=== PATIENT | female | born 1965 | race Caucasian/White ===

== ENCOUNTER 2016-07-31 12:59 | Emergency (ER) | payer SELFPAY ==
[2016-07-31 13:13] VITALS: BMI 31.6
[2016-07-31 13:42] LABS: AUTOMATED BASOPHIL 0.5 % (0-2); AUTOMATED LYMPH 10.2 % (17-44); AUTOMATED MONOCYTE 3.7 % (3-10); AUTOMATED NEUTROPHIL 85.6 % (45-76); MPV 7.6 fL (7.4-10.4)
[2016-07-31 13:52] LABS: BLOOD UREA NITROGEN 16 MG/DL (7-17); CALCIUM 9.7 MG/DL (8.4-10.2); CALCULATED OSMOLALITY 274 MOs/Kg (270-290); CHLORIDE 103 mEq/L (98-107); CPK TOTAL WITH POSSIBLE MB 77 IU/L (30-134); GLUCOSE 138 MG/DL (70-99); SODIUM LEVEL 141 mEq/L (137-146); TOTAL PROTEIN 8.3 G/DL (6.3-8.2)
[2016-07-31 13:53] LABS: PARTIAL THROMB. TIME 21.9 SEC (22-35)
[2016-07-31 14:08] LABS: FREE T3 2.99 pg/mL (2.77-5.27); FREE T4 1.23 ng/dL (0.78-2.19)
--- NOTE | 2016-07-31 14:08 | DIRPT ---
CLINICAL DATA: Palpitation EXAM: CHEST 2 VIEW COMPARISON: None. FINDINGS: Borderline cardiomegaly. Clear lungs. Normal vascularity. No pneumothorax. No pleural effusion. IMPRESSION: No active cardiopulmonary disease. Electronically Signed By: Holger Buck M.D. On: 07/31/2016 14:05
--- NOTE | 2016-07-31 14:12 | EDPRACDOC ---
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 RESOLVED ON ARRIVAL TO ER. CURRENTLY BEING TREATED FOR URI WITH LEVAQUIN AND PREDNISONE. ALSO REPORTS ELEVATED BLOOD SUGARS AND IS NOT DIABETIC. Symptoms Started: Reports: Suddenly, With light exertion Relevant History: Reports: None Pulse is: Rapid Worsens with: Reports: Exertion Associated signs & symptoms: Reports: Dyspnea. Denies: Chest pain Chest Pain Location: Reports: No Pain ED Past Medical History - History Reviewed Yes Nurses notes reviewed and agree except as marked - Patient Medical History Psychological History: Reports: Depression, Anxiety, Bipolar Disorder - Social Medical History Smoking Status: Heavy tobacco smoker (5 or more cigarettes/day or daily pipe/ cigar) Lives In: Home EDM Review of Systems - Review of Systems ROS Negative Except as Marked: Yes All systems reviewed and were negative except as marked Constitutional: Fatigue. negative: Fever Respiratory: Shortness of Breath Cardiovascular: Palpitations. negative: Chest Pain Gastrointestinal: negative: Nausea, Pain, Vomiting - Physical Exam Constitutional: Alert Oriented to: Time, Person, Place Last recorded Vital Signs: Last Vital Signs Temp 98.6 F 07/31/16 13:09 Pulse 120 H 07/31/16 13:28 Resp 20 07/31/16 13:28 BP 172/94 07/31/16 13:28 Pulse Ox 99 07/31/16 13:28 Oxygen Pulse Oxygen Saturation 99 O2 Device Room Air Oxygen Flow Rate Fraction of Inspired Oxygen ( FIO2) - HEENT Head: negative: Deformity, Laceration Eye Exam: negative: Conjunctival Injection, Pale Conjunctiva Oropharynx: negative: Membranes Dry Nose: negative: Congestion, Discharge Neck: negative: Limited ROM - Respiratory/Cardiovascular Respiratory: Normal - CTA. negative: Accessory Muscle Use, Diminished, Tachypnea Cardiovascular: Tachycardia. negative: Bradycardia, Irregular - GI Auscultation: Normal Palpation: Normal Tenderness: Non tender - Musculoskeletal Extremities: Radial Pulse (PALPABLE) - Integumentary Skin: Warm, Dry. negative: Rash - Neurologic Memory Impaired: Normal Motor Function: Normal Mood Description: Anxious, Appropriate Thought: Coherent Perception: Normal - Results 07/31/16 13:05 07/31/16 13:05 WBC 15.2 xk/uL (3.8-10.8) H 07/31/16 13:05 RBC 4.82 xM/uL (4.20-5.40) 07/31/16 13:05 Hgb 14.4 g/dL (12.0-16.0) 07/31/16 13:05 Hct 42.3 % (36-47) 07/31/16 13:05 MCV 88 fL (81-99) 07/31/16 13:05 MCH 29.8 pg (27-32) 07/31/16 13:05 MCHC 33.9 g/dl (33-36) 07/31/16 13:05 RDW 14.1 % (11.5-14.5) 07/31/16 13:05 Plt Count 418 xk/uL (130-400) H 07/31/16 13:05 MPV 7.6 fL (7.4-10.4) 07/31/16 13:05 Neut % (Auto) 85.6 % (45-76) H 07/31/16 13:05 Lymph % (Auto) 10.2 % (17-44) L 07/31/16 13:05 [place] % (Auto) 3.7 % (3-10) 07/31/16 13:05 Eos % (Auto) 0.0 % (0-5) 07/31/16 13:05 Baso % (Auto) 0.5 % (0-2) 07/31/16 13:05 Absolute Neuts (auto) 12.92 xk/uL (1.7-8.2) H 07/31/16 13:05 Absolute Lymphs (auto) 1.52 xk/uL (0.65-4.75) 07/31/16 13:05 Lab Results 07/31/16 13:05 WBC 15.2 H RBC 4.82 Hgb 14.4 Hct 42.3 MCV 88 MCH 29.8 MCHC 33.9 RDW 14.1 Plt Count 418 H MPV 7.6 Neut % (Auto) 85.6 H Lymph % (Auto) 10.2 L Garland % (Auto) 3.7 Eos % (Auto) 0.0 Baso % (Auto) 0.5 Absolute Neuts (auto) 12.92 H Absolute Lymphs (auto) 1.52 - EKG EKG #1 Initial EKG Time: 13:04 -: Yes EKG interpreted by me Rate: bpm: 110 Rhythm: ST ST: Nonsp Decision Time to Discharge: 14:46 - Departure Yes I personally saw and evaluated the patient. Disposition: Home Condition: Stable Final Diagnosis: Palpitations, Sinus tachycardia Instructions: Palpitations (ED) Education/Counseling Given To: Patient Education/Counseling Given Regarding: Diagnosis, Treatment, Prognosis, Follow Up Referrals: None,No Provider [Primary Care Provider] - One Week Kenneth Zaldivar MD [Staff Physician] - As Needed Additional Instructions: MAKE SURE TO TAKE IN PLENTY OF FLUIDS.
[2016-07-31 14:21] VITALS: TEMP 98.2
[2016-07-31 14:21] LABS: hTSH 1.68 uIU/mL (0.5-4.67)
[2016-07-31 14:40] LABS: LEUKOCYTES/URINE NEG (NEGATIVE); NITRITE/URINE NEG (NEGATIVE); RBC/URINE 0-2 (0-5); URINE OCCULT BLOOD 2+ (NEG/TRACE); WBC/URINE 0-2 (0-5)
[2016-07-31 15:15] VITALS: BP 136/92; PULSE 88
== END 2016-07-31 15:15 | disposition home or self-care (01) ==
LOC: ED 12:59
DX: R00.0 Tachycardia, unspecified (principal)
CPT/HCPCS: 36415; 71020; 80053; 81001; 82550; 84439; 84443; 84481; 84484; 85025; 85610; 85730; 93005; 99284

== ENCOUNTER 2016-08-01 07:54 | Observation (INO) | payer SELFPAY ==
--- NOTE | 2016-08-01 08:06 | EDPRACDOC ---
- General Information Stated Complaint: CP Time Seen by Provider: 08/01/16 07:56 Information Source: Patient Mode of Arrival: Ambulance Home Medications: Home Medications No Home Medications 08/01/16 Allergies/Adverse Reactions: Allergies Allergy/AdvReac Type Severity Reaction Status Date / Time prednisone Allergy Hypertensio Verified 08/01/16 08:18 n sumatriptan [From Imitrex] Allergy Edema-Oral/ Verified 08/01/16 08:18 Lip - History of Present Illness HPI: PT PRESENTS WITH SUBSTERNAL CHEST PAIN/TIGHTNESS FOR THE LAST DAY BUT WORSENED WITH EXERTION THIS MORNING. WAS SEEN BY ME FOR PALPITATIONS IN ER YESTERDAY WITHOUT DEFINITIVE CAUSE BUT CONCERN FOR REACTION TO PREDNISONE. ON PREDNISONE AND LEVAQUIN FOR SINUS INFECTION. Chest Pain Location: Reports: Substernal, Epigastric Pain Radiation: Reports: None Symptoms Occur: Reports: At Rest Cardiac Risk Factors: Reports: Hypertension (UNTREATED) Prehospital Care: Reports: ASA (325 MG) Pain Description: Reports: Aching, Tightness Pain Severity: Moderate Pain Worsens With: Reports: Exertion Pain Improves With: Reports: Rest Associated Signs and Symptoms: Reports: SOB, Palpitations, Abdominal Pain ( EPIGASTRIC). Denies: Vomiting ED Past Medical History - History Reviewed Yes Nurses notes reviewed and agree except as marked - Patient Medical History Psychological History: Reports: Depression, Anxiety, Bipolar Disorder - Social Medical History Smoking Status: Heavy tobacco smoker (5 or more cigarettes/day or daily pipe/ cigar) Lives With: Family Lives In: Home EDM Review of Systems - Review of Systems ROS Negative Except as Marked: Yes All systems reviewed and were negative except as marked Constitutional: Fatigue. negative: Fever Cardiovascular: Chest Pain, Palpitations. negative: Syncope Gastrointestinal: negative: Pain, Vomiting - Physical Exam Constitutional: Alert Oriented to: Time, Person, Place Last recorded Vital Signs: Oxygen Pulse Oxygen Saturation O2 Device Oxygen Flow Rate Fraction of Inspired Oxygen ( FIO2) - HEENT Head: negative: Deformity, Laceration Eye Exam: negative: Conjunctival Injection, Pale Conjunctiva Oropharynx: negative: Membranes Dry Nose: negative: Congestion, Discharge Neck: negative: Limited ROM - Respiratory/Cardiovascular Respiratory: Normal - CTA. negative: Accessory Muscle Use, Diminished, Tachypnea Cardiovascular: negative: Bradycardia, Tachycardia, Irregular - GI Auscultation: Normal Palpation: Normal Tenderness: Non tender - Musculoskeletal Extremities: Pedal Pulse (PALPABLE), Radial Pulse (PALPABLE). negative: Calf Tenderness, Pedal Edema - Integumentary Skin: Warm, Dry. negative: Rash - Neurologic Memory Impaired: Normal Motor Function: Normal Mood Description: Anxious Thought: Coherent Perception: Normal - Results 08/01/16 08:50 08/01/16 08:50 - EKG EKG #1 EKG Time: 08:15 -: Yes EKG interpreted by me Rate: bpm: 74 Rhythm: NSR Block: None ST: Nonsp - Departure Yes I personally saw and evaluated the patient. Disposition: Admit IP To This Hospital Condition: Stable Final Diagnosis: Chest pain Qualifiers: Chest pain type: unspecified Qualified Code(s): R07.9 - Chest pain, unspecified Decision to Admit Time: 10:30 Decision to admit date: 08/01/16 Decision to admit: from ED
[2016-08-01 09:07] LABS: AUTOMATED BASOPHIL 0.8 % (0-2); AUTOMATED LYMPH 25.4 % (17-44); AUTOMATED NEUTROPHIL 64.8 % (45-76); MPV 7.4 fL (7.4-10.4)
[2016-08-01 09:22] LABS: BLOOD UREA NITROGEN 16 MG/DL (7-17); CALCIUM 9.7 MG/DL (8.4-10.2); CALCULATED OSMOLALITY 276 MOs/Kg (270-290); CHLORIDE 105 mEq/L (98-107); CPK TOTAL WITH POSSIBLE MB 85 IU/L (30-134); GLUCOSE 96 MG/DL (70-99); SODIUM LEVEL 143 mEq/L (137-146); TOTAL PROTEIN 7.7 G/DL (6.3-8.2)
[2016-08-01 09:24] LABS: PARTIAL THROMB. TIME 23.3 SEC (22-35); PT-INR 0.9
[2016-08-01] MEDS ORDERED: ASPIRIN 325 MG TAB PO ONE (09:27)
[2016-08-01] MEDS ORDERED: NITROGLYCERINE 2 % OINTMENT PACK TOP STA (09:27)
[2016-08-01] MEDS ORDERED: NITROGLYCERINE 0.4 MG TAB SL STA (09:27)
[2016-08-01] MEDS ORDERED: NITROGLYCERINE 0.4 MG TAB SL PRN (10:17)
[2016-08-01] MEDS ORDERED: MORPHINE 2 MG/ML INJECTION IV PRN (10:17)
[2016-08-01] MEDS ORDERED: METOPROLOL TARTRATE 25 MG TAB PO ONE (10:20)
[2016-08-01] MEDS: ASPIRIN 325 MG TAB PO SCH (11:00)
[2016-08-01] MEDS ORDERED: Pharmacy Order Set Alert SCH (11:00)
[2016-08-01 11:54] VITALS: BMI 30.1
[2016-08-01] MEDS ORDERED: IBUPROFEN 800 MG TAB PO ONE (12:15)
--- NOTE | 2016-08-01 14:33 | HISTPHYS ---
- Chief Complaint pt seen here yesterday for same. states still having substernal CP radiating to throat. denies n/v. denies pain at this time. states BP high, is suppose to be on medication but isn't, doesn't work, no PCP - History of Present Illness PT PRESENTS WITH SUBSTERNAL CHEST PAIN/TIGHTNESS FOR THE LAST DAY BUT WORSENED WITH EXERTION THIS MORNING. WAS SEEN BY ME FOR PALPITATIONS IN ER YESTERDAY WITHOUT DEFINITIVE CAUSE BUT CONCERN FOR REACTION TO PREDNISONE. ON PREDNISONE AND LEVAQUIN FOR SINUS INFECTION. Chest Pain Location: Reports: Substernal, Epigastric Pain Radiation: Reports: None Symptoms Occur: Reports: At Rest Cardiac Risk Factors: Reports: Hypertension (UNTREATED) Prehospital Care: Reports: ASA (325 MG) Pain Description: Reports: Aching, Tightness Pain Severity: Moderate Pain Worsens With: Reports: Exertion Pain Improves With: Reports: Rest Associated Signs and Symptoms: Reports: SOB, Palpitations, Abdominal Pain ( EPIGASTRIC). Denies: Vomiting Patient states pain is intermittent it is worse with movement. It is associated with radiating between her shoulder blades in the back. She also has pain in her right upper quadrant. She has not noticed the pain in her right upper quadrant in quite sometime. - Medical History Cardiac History: Reports: Hypertension Respiratory History: Reports: Pneumonia GI/ History: Reports: Urinary Tract Infection Musculoskeletal History: Reports: No Significant History Systemic History: Reports: No Significant History Neurological History: Reports: No Significant History Psychological History: Reports: Depression, Anxiety, Bipolar Disorder - Surgical History Reports: No Significant History - Medictions/Allergies Allergies prednisone Allergy (Verified 08/01/16 08:18) Hypertension sumatriptan [From Imitrex] Allergy (Verified 08/01/16 08:18) Edema-Oral/Lip Current Medication List: Reviewed Home Medications No Home Medications 08/01/16 - Family History Reports: Cardiac Disorders (mother) - Social History Travel Outside of [place] in the Last 3 Months?: No Smoking Status: Heavy tobacco smoker (5 or more cigarettes/day or daily pipe/ cigar) - Review of Systems Constitutional: No Symptoms Reported (No Fever, chills, wt loss/gain, diaphoresis,fatigue/malaise.) Eyes: No Symptoms Reported (No blurry vision, visual changes, eye pain, or eye redness.) Ears: No Symptoms Reported (No ear pain or discharge) Nose: No Symptoms Reported (No nasal discharge/congestion or bleeding) Mouth: No Symptoms Reported (No oropharyngeal lesions or erythema) Throat/Neck: No Symptoms Reported (No throat pain or swelling.No oropharyngeal lesions or erythema.) Respiratory: No Symptoms Reported (No cough, wheezing, or shortness of breath.) Cardiovascular: Chest Pain Gastrointestinal: No Symptoms Reported (No abdominal pain, nausea, vomiting, diarrhea, constipation, or bloody stool.) Genitourinary: No Symptoms Reported (No dysuria or hematuria.) Neurological: Headache Musculoskeletal:: No Symptoms Reported Integumentary: No Symptoms Reported (no rashes or lesions) Allergic/Immunologic: No Symptoms Reported (no rashes or lesions) Hematologic: No Symptoms Reported (No chronic anemia, bleeding, or easy bruising.), Other (Lymphatics- no lymph node swelling or pain.) Endocrine: No Symptoms Reported (No thyroid issues, polyuria, or polydipsia.) Psychiatric: No Symptoms Reported (Fully oriented, with normal and appropriate affect.) - Physical Exam Vital Signs: Initial Vitals Temperature 98.4 F 08/01/16 08:04 Pulse Rate 72 08/01/16 08:04 Respiratory Rate 18 08/01/16 08:04 Blood Pressure 155/81 08/01/16 08:04 Pulse Oxygen Saturation 96 08/01/16 08:04 Constitutional: Alert (Awake, Fully oriented. Normal and appropriate affect.Well appearing. Well nourished.), No apparent distress Oriented to: Time, Person, Place - HEENT Head: Normal (normocephalic, atraumatic.), Other (No cervical lymphadenopathy. No supraclavicular lymphadenopathy. Neck: No palpable mass, supple , trachea midline.) Eye: Normal Oropharynx: Normal (Pharynx: Moist without exudate,Gums-no swelling, No oropharyngeal lesions or erythema, Mucous membranes are dry.) Nose: No Symptoms Reported (septum midline, Nares patent, without discharge or bleeding.) Respiratory: Normal - CTA (Clear to auscultation bilaterally. No wheezing, rales , rhonchi. Chest wall movements are symmetric. No use of accessory muscles to breathe.) Cardiovascular: Normal (RRR , Normal S1, S2. No murmurs, rubs, or gallops. PMI non-displaced. Carotids: no carotid bruits. No bradycardia or tachycardia. DP pulses 2+ bilaterally.) - GI Auscultation: Normal (normal active sounds) Palpation: Normal (Soft,non distended,nontender. No hepatosplenomegaly.) Tenderness: Non tender (No rebound or guarding) Bates's Sign: Positive - Musculoskeletal Back: Normal (Non-Tender) Extremities: Normal (Normal tone, DP pulses 2+ bilaterally, No cyanosis or edema bilaterally, FROM bilaterally.) Spine: non-tender - Integumentary Skin: Normal (Clean, dry, and intact. No rashes. No lesions.) Lymphatics: Normal (No cervical lymphadenopathy. No supraclavicular lymphadenopathy.) - Neurologic Memory Impaired: Normal Motor Function: Normal (Motor 5/5 throughout.Normal tone, Pulses 2+ No cyanosis or edema, FROM) Cranial Nerve: Normal (CN II-XII intact sensation, strength 5/5) Cerebellar: Normal (Babinski: toes downgoing bilaterally. Intact Finger to nose. Sensory grossly intact to light touch. Intact rapid alternating movements bilaterally. No pronator drift.) Mood Description: Normal (Fully oriented. Normal and appropriate affect.) Perception: Normal (Normal and appropriate affect.) - Focused CV Perfusion Exam Vital Signs: Last Vital Signs Temp 99.1 F 08/01/16 11:53 Pulse 74 08/01/16 12:30 Resp 18 08/01/16 11:53 BP 121/77 08/01/16 11:53 Pulse Ox 97 08/01/16 11:53 - Lab Results Laboratory Tests 08/01/16 08/01/16 08/01/16 08:50 08:50 08:50 WBC 13.7 H Hgb 14.3 Hct 42.8 Plt Count 400 PT 9.6 INR 0.9 APTT 23.3 Sodium 143 Potassium 3.9 Chloride 105 Carbon Dioxide 25 Anion Gap 17 H BUN 16 Creatinine 0.90 Estimated GFR (MDRD) > 60 Glucose 96 Calcium 9.7 Total Bilirubin 0.9 AST 20 ALT 35 Alkaline Phosphatase 101 Creatine Kinase 85 Troponin I < 0.01 Total Protein 7.7 Albumin 4.6 Lipase 109 - Diagnostic Findings EKG #1 EKG Time: 08:15 -: Yes EKG interpreted by me Rate: bpm: 74 Rhythm: NSR Block: None ST: Nonsp personally viewed by me - Assessment (1) Chest pain R07.9 - CHEST PAIN, UNSPECIFIED Acute Qualifiers: Chest pain type: unspecified Ischemic chest pain type: I Qualified Code(s ): R07.9 - Chest pain, unspecified Patient with chest pains associated with palpitations. She feels it may be related to her prednisone. Given her history and cardiac risk factors she will be admitted into the hospital for observation in the chest Pain observation unit. (2) Palpitations R00.2 - PALPITATIONS Acute Present on Admission: Yes Likely related to prednisone however given her risk factors will rule patient out for myocardial infarction. (3) Positive Bates's Sign R19.8 - OTH SYMPTOMS AND SIGNS INVOLVING THE DGSTV SYS AND ABDOMEN Acute Present on Admission: Yes Patient with abnormal right upper quadrant examination. Will check a gallbladder ultrasound. If it is negative she may need outpatient HIDA scan or further evaluation (4) Adverse drug effect T88.7XXA - UNSP ADVERSE EFFECT OF DRUG OR MEDICAMENT, INIT ENCNTR Acute Present on Admission: Yes Likely prednisone causing palpitations in this patient. - Plan Chest pain observation center, rule out myocardial infarction. Proceed with stress test. Case Care Discussed with: Patient, Nursing Staff Total Time: 55 minutes Critical Care: No Couseling Time (>50% in counseling/coordination): No
[2016-08-01] MEDS ORDERED: Vaccine Screening Complete SCH (17:00)
[2016-08-01] MEDS ORDERED: ENOXAPARIN 40 MG/0.4 ML PFS SQ SCH (18:00)
--- NOTE | 2016-08-01 20:45 | DIRPT ---
CLINICAL DATA: Abdominal pain for 1 day EXAM: US ABDOMEN LIMITED - RIGHT UPPER QUADRANT COMPARISON: None. FINDINGS: Gallbladder: No gallstones or wall thickening visualized. Positive sonographic Bates's sign. Common bile duct: Diameter: Normal at 3 mm Liver: Diffuse increase in liver echogenicity. No duct dilatation IMPRESSION: 1. Diffuse increase in liver echogenicity commonly represents hepatic steatosis. 2. Positive sonographic Bates's sign; however, there is no gallstones, gallbladder wall thickening, or pericholecystic fluid. Electronically Signed By: Edgar Moreno M.D. On: 08/01/2016 20:42
[2016-08-01] MEDS ORDERED: ACETAMINOPHEN 325 MG/TAB TABLET PO PRN ×2 (21:47→22:03)
[2016-08-01] MEDS ORDERED: MAGNESIUM HYDROXIDE 30 ML BOTTLE PO ONE (21:50)
[2016-08-01] MEDS: METOPROLOL TARTRATE 25 MG TAB PO SCH (22:20)
[2016-08-01] MEDS: TRAMADOL HCL 50 MG TAB PO PRN (22:20)
[2016-08-02 07:04] LABS: GLUCOSE 86 MG/DL (70-99)
[2016-08-02] MEDS ORDERED: REGADENOSON 0.4 MG/5 ML SYRINGE IV ONE (09:00)
[2016-08-02] MEDS ORDERED: SODIUM CHLORIDE 0.9% 10 ML FLUSH FLUSH ONE (09:00)
[2016-08-02] MEDS ORDERED: SESTAMIBI 8 MCI V IV ONE (09:31)
[2016-08-02] MEDS: TRAMADOL HCL 50 MG TAB PO PRN (10:20)
[2016-08-02] MEDS: METOPROLOL TARTRATE 25 MG TAB PO SCH (10:48)
--- NOTE | 2016-08-02 10:49 | CAPUEKG ---
[place], [place] Test Date: 2016-08-02 Pat Name: MIESHA RASHID Department: Room: 438 Gender: Female Mobility Architect: : Requested By: Order Number: Reading MD: Arthur Pratt MD Measurements Intervals [place] Rate: 61 P: 58 SC: 186 QRS: 64 QRSD: 84 T: 73 QT: 414 QTc: 416 Interpretive Statements Normal sinus rhythm Normal ECG Electronically Signed On 08-02-16 10:48:47 EST by Arthur Pratt MD [email or web address]> [id number]
[2016-08-02 11:01] VITALS: BP 106/62; TEMP 98.6
[2016-08-02] MEDS: ASPIRIN 325 MG TAB PO SCH (11:15)
[2016-08-02 13:48] VITALS: PULSE 60
--- NOTE | 2016-08-02 14:10 | PCM.DCS92 ---
- Final/Secondary Discharge Diagnosis (1) Chest pain Acute R07.9 - CHEST PAIN, UNSPECIFIED unspecified I R07.9 - Chest pain, unspecified Comment: Patient with chest pains associated with palpitations. She feels it may be related to her prednisone. Given her history and cardiac risk factors she will be admitted into the hospital for observation in the chest Pain observation unit. (2) Palpitations Acute R00.2 - PALPITATIONS Present on Admission: Yes Comment: Likely related to prednisone however given her risk factors will rule patient out for myocardial infarction. (3) Positive Bates's Sign Acute R19.8 - OTH SYMPTOMS AND SIGNS INVOLVING THE DGSTV SYS AND ABDOMEN Present on Admission: Yes Comment: Patient with abnormal right upper quadrant examination. Will check a gallbladder ultrasound. If it is negative she may need outpatient HIDA scan or further evaluation (4) Adverse drug effect Acute T88.7XXA - UNSP ADVERSE EFFECT OF DRUG OR MEDICAMENT, INIT ENCNTR Present on Admission: Yes Comment: Likely prednisone causing palpitations in this patient. Discharge Disposition: Home Discharge Condition: Improved Cognitive Discharge Status: Unimpaired Fuctional Discharge Status: Independent Home Medications / New Prescriptions: Continue No Home Medications 0 NA DIR #0 info Discharge Home Medication List Metoprolol Tartrate [Lopressor] 25 mg PO BID #60 tablet 08/02/16 [Rx Last Taken Unknown] Discharge Home Medication List Metoprolol Tartrate [Lopressor] 25 mg PO BID #60 tablet 08/02/16 [Rx] New Discharge Medications (Rx) Metoprolol Tartrate [Lopressor] 25 mg PO BID #60 tablet 08/02/16 [Rx] please have pt follow up with dental practitioner MD for eval of non-cardiac chest pain O2 Device: Room Air Diet at Discharge: Low Salt Activity: No Restrictions Call Office For: Worsening Symptoms, Fever over 100.5, Pain Uncontrolled By Meds Discontinue use of:: All Types of Tobacco - DC Summary Notes Hospital Course Note:: Discharge summary on patient named MIESHA RASHID admitted to [facility] on 08/01/16 by Emeli Gamez MD. Date of discharge is []. The patient was admitted under observation and serial cardiac enzymes and EKGs were obtained. The patient ruled out for myocardial infarction by serial enzymes and EKGs. The patient then underwent a stress test. The stress test showed no evidence of reversible ischemia. The patient is stable for discharge home. Blood pressure slightly elevated in the past 24 hours. Will start patient on metoprolol 25 mg p.o. twice daily. She is to follow up with dental practitioner MD for evaluation of her blood pressure and follow-up for causes of noncardiac chest pain. Total Time: 55 min - Physical Exam Vital Signs: Last Vital Signs Temp 98.6 F 08/02/16 10:59 Pulse 60 08/02/16 13:47 Resp 18 08/02/16 10:59 BP 106/62 08/02/16 10:59 Pulse Ox 98 08/02/16 04:40 Oxygen Pulse Oxygen Saturation 98 O2 Device Room Air Oxygen Flow Rate Fraction of Inspired Oxygen ( FIO2) Constitutional: Alert (Awake, Fully oriented. Normal and appropriate affect.Well appearing. Well nourished.), No apparent distress Oriented to: Time, Person, Place - HEENT Head: Normal (normocephalic, atraumatic.), Other (No cervical lymphadenopathy. No supraclavicular lymphadenopathy. Neck: No palpable mass, supple , trachea midline.) Eye: Normal Oropharynx: Normal (Pharynx: Moist without exudate,Gums-no swelling, No oropharyngeal lesions or erythema, Mucous membranes are dry.) Nose: No Symptoms Reported (septum midline, Nares patent, without discharge or bleeding.) - Respiratory/Cardiovascular Respiratory: Normal - CTA (Clear to auscultation bilaterally. No wheezing, rales , rhonchi. Chest wall movements are symmetric. No use of accessory muscles to breathe.) Cardiovascular: Normal (RRR , Normal S1, S2. No murmurs, rubs, or gallops. PMI non-displaced. Carotids: no carotid bruits. No bradycardia or tachycardia. DP pulses 2+ bilaterally.) - GI Auscultation: Normal (normal active sounds) Palpation: Normal (Soft,non distended,nontender. No hepatosplenomegaly.) Tenderness: Non tender (No rebound or guarding) Bates's Sign: Positive - Musculoskeletal Back: Normal (Non-Tender) Extremities: Normal (Normal tone, DP pulses 2+ bilaterally, No cyanosis or edema bilaterally, FROM bilaterally.) - Integumentary Skin: Normal (Clean, dry, and intact. No rashes. No lesions.) Lymphatics: Normal (No cervical lymphadenopathy. No supraclavicular lymphadenopathy.) - Neurologic Memory Impaired: Normal Cerebellar: Normal (Babinski: toes downgoing bilaterally. Intact Finger to nose. Sensory grossly intact to light touch. Intact rapid alternating movements bilaterally. No pronator drift.) Mood Description: Normal (Fully oriented. Normal and appropriate affect.) Perception: Normal (Normal and appropriate affect.) - Other Exam Other Exam Findings: EXAM: US ABDOMEN LIMITED - RIGHT UPPER QUADRANT COMPARISON: None. FINDINGS: Gallbladder: No gallstones or wall thickening visualized. Positive sonographic Bates's sign. Common bile duct: Diameter: Normal at 3 mm Liver: Diffuse increase in liver echogenicity. No duct dilatation IMPRESSION: 1. Diffuse increase in liver echogenicity commonly represents hepatic steatosis. 2. Positive sonographic Bates's sign; however, there is no gallstones, gallbladder wall thickening, or pericholecystic fluid. Electronically Signed By: Edgar Moreno M.D. On: 08/01/2016 20:42
--- NOTE | 2016-08-02 15:06 | PCM.STRESS ---
Nuclear stress test (Lexiscan): Indication for procedure: Chest pain. Patient was brought to the stress test room in a fasting state. IV was already inserted. The patient got connected to the bus driver/monitor. Blood pressure was monitored as well as pulse oximetry. Lexiscan was given during in usual fashion. That was followed by injection of radioisotope. Then patient was monitored for about 5 min. Resting heart rate was 58 beats/ min. Resting blood pressure was 124/84 mm of mercury. Resting EKG showed normal sinus rhythm, normal P interval, early repolarization abnormalities.. EKG during the infusion of Lexiscan and shortly after showed no diagnostic ST-T segment changes. Symptoms noted during the infusion and after include mild nausea. Nuclear assessment: Resting imaging showed mild defect involving apical mid portion of the anteroseptal wall. Stress imaging showed mild defect involving apical mid portion of the anteroseptal wall. Gated imaging revealed normal contractility in all segments. The ejection fraction was 73%. Conclusions: 1. No ischemia seen on this scan. 2. Normal gated images. 3. Normal ejection fraction calculated to be 73%. Comments fixed defect involving anteroseptal wall is most likely related to breast attenuation..
== END 2016-08-02 15:46 | disposition home or self-care (01) ==
LOC: ED 07:54 → PCU 10:17
PROVIDERS: ADMIT Hospitalist; ATTEND Hospitalist
DX: R07.9 Chest pain, unspecified (principal); T88.7XXA Unspecified adverse effect of drug or medicament, initial encounter; R00.2 Palpitations; R19.8 Other specified symptoms and signs involving the digestive system and abdomen; I10 Essential (primary) hypertension; R06.02 Shortness of breath; F17.210 Nicotine dependence, cigarettes, uncomplicated; Z79.52 Long term (current) use of systemic steroids
CPT/HCPCS: 36415; 76705; 78452; 80053; 80061; 82550; 82947; 83690; 84484; 85025; 85379; 85610; 85730; 93005; 93017; 96372; 99284; 99406; A4216; A9500; G0378; J1650; J2785; J3490